=== PATIENT | male | born 1960 | race Caucasian/White ===

== ENCOUNTER 2018-08-01 15:49 | Emergency (ER) | payer MEDICAID ==
--- NOTE | 2018-08-01 16:04 | EDPHY ---
H & P Stated Complaint: Injured right knee, twisted and fell, then painful to walk on it Time Seen by Provider: 08/01/18 16:03 HPI/ROS: Chief Complaint: Right knee injury HPI: The patient presents the ED with complaints of right knee pain after he twisted his knee while hiking. He complains of pain along the medial aspect of the knee. He denies any sensation of locking. He denies any significant joint effusion. He denies any acute numbness or weakness. He denies additional acute complaints. REVIEW OF SYSTEMS: Neuro: no headache, numbness, weakness Musculoskeletal: as above Skin: no abrasion or lacerations Source: Patient Exam Limitations: No limitations - Personal History Current Tetanus/Diphtheria Vaccine: Unsure Current Tetanus Diphtheria and Acellular Pertussis (TDAP): Unsure - Medical/Surgical History Hx Asthma: No Hx Chronic Respiratory Disease: No Hx Diabetes: No Hx Cardiac Disease: No Hx Renal Disease: No Hx Cirrhosis: No Hx Alcoholism: No Hx HIV/AIDS: No Hx Splenectomy or Spleen Trauma: No - Social History Smoking Status: Never smoked - Physical Exam Exam: General Appearance: Alert, no distress Skin: No lacerations, No abrasion Extremities: Tenderness to palpation along the right MCL ligament, no joint effusion, normal range of motion Neurological: 5/5 strength in normal new sensory exam noted in the lower extremity. Constitutional: Initial Vital Signs Temperature (C) 37 C 08/01/18 15:52 Heart Rate 59 L 08/01/18 15:52 Respiratory Rate 16 08/01/18 15:52 Blood Pressure 135/74 H 08/01/18 15:52 O2 Sat (%) 96 08/01/18 15:52 O2 Delivery Mode Room Air Allergies/Adverse Reactions: No Known Allergies Allergy (Unverified 08/01/18 15:52) Home Medications: Medication Instructions Recorded NK [No Known Home Meds] 08/01/18 Medical Decision Making - Diagnostics Imaging Results: Imaging Impressions Knee X-Ray 08/01/18 16:04 Impression: Normal. Nothing acute identified. ED Course/Re-evaluation: X-ray demonstrates no evidence of an obvious fracture. The patient has no significant joint effusion or instability. I suspect this is a extra-articular strain. He will be placed in an Ronnie wrap. He is given customary knee strain aftercare instructions. He is given follow up with our on-call orthopedic surgeon for unimproved symptoms. Departure - Departure Disposition: Home, Routine, Self-Care Clinical Impression: Knee sprain Condition: Good Instructions: Knee Sprain (ED) Additional Instructions: 1. Take Ibuprofen or Motrin 600 mg by mouth three times a day. 2. Ice 20-30 minutes at a time several times a day. 3. You have been given the number of our on-call orthopedic surgeon for any worsening symptoms. Referrals: Coleman No MD [Medical Doctor] - As per Instructions
[2018-08-01 17:01] VITALS: BP 122/70
== END 2018-08-01 17:00 | disposition home or self-care (01) ==
DX: S83.91XA Sprain of unspecified site of right knee, initial encounter (principal); X50.1XXA Overexertion from prolonged static or awkward postures, initial encounter; Y93.01 Activity, walking, marching and hiking